=== PATIENT | female | born 1970 | race Caucasian/White ===

== ENCOUNTER 2020-04-21 14:08 | Emergency (ER) | payer OTHER, SELFPAY ==
[2020-04-21 14:10] VITALS: BP 95/42; PULSE 90; RESP 19; TEMP 36.7; O2SAT 97; BMI 29.2
--- NOTE | 2020-04-21 14:29 | US_ITS ---
PROCEDURE: US TRANSVAGINAL CLINICAL INDICATION: vaginal bleeding Vaginal bleeding, history of ovarian cancer COMPARISON: No exams were available for comparison FINDINGS: There has been a prior hysterectomy oophorectomy. Vaginal stump has an unremarkable appearance. Small amount fluid is present in the pelvis. Irregular areas of decreased echogenicity is are noted in the pelvis. This is of unknown clinical significance. Suggest CT of the abdomen pelvis with IV and adequate oral contrast for further evaluation. IMPRESSION: Status post hysterectomy and oophorectomy. Heterogeneous areas of low level echoes noted within the pelvis of indeterminate etiology. Recommend further evaluation CT of the abdomen pelvis with IV and adequate oral contrast Dictated by: Rocael Fitzgerald MD 04/21/2020 15:41 Rocael Fitzgerald MD in [place] 04/21/2020 15:41
--- NOTE | 2020-04-21 14:29 | CT_ITS ---
PROCEDURE: CT ABDOMEN PELVIS W CON CLINICAL INDICATION: abd pain Abdominal pain with vaginal bleeding, history of ovarian cancer COMPARISON: US US TRANSVAGINAL from 04/21/2020 TECHNIQUE: IV Contrast: 75ML Isovue 370 Oral Contrast None Axial images obtained with sagittal and coronal reformats. All CT scans at the facility use one or more dose reduction, viz: automated exposure control, ma/kV adjustment per patient size (including targeted exams where dose is matched to indication, i.e. head), or iterative reconstruction technique. FINDINGS: LOWER THORAX: There is patchy ground-glass attenuation in both lung bases with some mild atelectatic changes in the left lower lobe and a subpleural nodular density in the left lung base laterally at 7 mm. ABDOMEN & PELVIS: Mild fatty liver noted. There is a sub cm hypodensity in the hepatic dome anteriorly image 16 nonspecific. There is vague decreased attenuation within the central aspect of the right hepatic lobe possibly due to more focal areas of fatty infiltration. Follow-up may confirm. There has been a prior cholecystectomy. There is borderline splenomegaly at 13 cm. There are few small upper abdominal and perigastric lymph nodes. The adrenal glands and pancreas has an unremarkable appearance. There is mild cortical scarring of the right kidney. A 6 mm nonobstructing stone is present in the upper pole of the left kidney. No ureteral calculi. There is a mild amount of retained colonic feces.. There is some minimal nodularity noted along the lateral aspect of the splenic flexure of the colon nonspecific. The appendix is not clearly delineated. There has been a prior hysterectomy. There is a small amount of gas within the vaginal cuff. There is an area of soft tissue attenuation in the central pelvic region which may be due to the unopacified bowel and unopacified urinary bladder adjacent to the vaginal cuff. However, there was question of some unusual echogenicity in this area on the ultrasound. Consider repeating exam with adequate oral contrast as mentioned in the ultrasound report. There is a circular area of increased density inferior to the umbilicus within the anterior abdominal wall felt represent postsurgical change. There is thickening of the lateral conal fascia on the left extending down into the pelvic region. There is also some thickening of the lateral conal fascia on the right extending into the pelvic region. Scattered small nodular densities are present in the lower pelvic region and could represent small lymph nodes versus mesenteric implants. There is minimal amount of fluid in the pelvis. There is mild wedging of T11 age indeterminate. IMPRESSION: 1. Patchy ground-glass attenuation in both lower lobes consistent with bilateral lower lobe pneumonia. COVID 19 pneumonia is a consideration. There are also some atelectatic changes in the left lung base and a 7 mm subpleural nodule in the left lower lobe for which is six-month follow-up is suggested. 2. Status post hysterectomy. There is some soft tissue density noted at the vaginal cuff region with thickening of the lateral conal fascia bilaterally extending into the pelvic region. The appendix is not clearly delineated. Suggest repeating exam with adequate oral contrast as mentioned in the ultrasound report. 3. Scattered small nodular densities in the lower pelvic region which may represent small lymph nodes or even mesenteric implants. This could also be better evaluated with repeat exam with oral contrast. Dictated by: Rocael Fitzgerald MD 04/21/2020 17:06 Rocael Fitzgerald MD in [facility] 04/21/2020 17:06
--- NOTE | 2020-04-21 14:30 | HMH.EDGENADL ---
ED Disposition Clinical Impression: Vaginal bleeding, Lung nodule UTI (urinary tract infection) Qualifiers: Urinary tract infection type: acute cystitis Hematuria presence: with hematuria Qualified Code(s): N30.01 - Acute cystitis with hematuria Disposition: Home, Self-Care Condition on Discharge: Good Instructions: DI for Vaginal Bleeding Additional Instructions: You were seen on an emergency basis. It is very important that you follow up with your primary care provider and/or specialist as we discussed within 2 days. All labs and imaging were obtained and interpreted here to rule out life threatening emergencies, but your final results should be reviewed by your primary doctor at your follow up appointment. Please return to the emergency department if any of your symptoms worsen, or if they do not improve as we discussed. Please keep your oncology follow-up appointment for next week Prescriptions: Cefdinir [Omnicef 300mg Capsule] 300 mg PO BID #20 cap Prescription Printed Referrals: PCP,No [Primary Care Provider] - - Critical Care Critical Care Time: No Attestation: On 04/21/20, the high probability of a clinically significant, sudden or life threatening deterioration of the following system(s) required my full and direct attention, intervention and personal management. The time I documented below is in addition to time spent performing reported procedures but includes the following listed in this critical care notation. Medical Decision Making - Medical Records Medical records reviewed: Yes: I reviewed the patient's medical records. - Rafael Inquiry Pt receiving controlled substance: No Vital Signs: 04/21/20 14:10 04/21/20 15:24 04/21/20 16:37 Temperature 98.1 F Temperature Source Oral Pulse Rate [Left Radial] 90 89 69 Respiratory Rate 19 18 Blood Pressure [Right Arm] 95/42 L 114/56 L 127/60 Blood Pressure Mean [Right Arm] 59 75 82 Blood Pressure Source [Right Arm] Automatic Cuff Automatic Cuff Automatic Cuff Blood Pressure Position [Right Arm] Sitting Sitting Sitting 02 Sat by Pulse Oximetry 97 96 99 Oxygen Delivery Method Room Air Room Air - Lab Data Lab results reviewed: Yes: I reviewed the patient's lab results. Lab Results 04/21/20 14:24: Urine Color Dk yellow, Urine Appearance Cloudy, Urine pH 7.0, Ur Specific [place] 1.020, Urine Protein Trace, Urine Glucose (UA) Negative, Urine Ketones Negative, Urine Blood 2+, Urine Nitrate Negative, Urine Bilirubin Negative, Urine Urobilinogen 1.0, Ur Leukocyte Esterase 2+ A, Urine WBC 10-20, Urine Bacteria 1+ 04/21/20 15:30: WBC 5.6, RBC 4.27, Hgb 12.1 L, Hct 39.0, MCV 91.4, MCH 28.3, MCHC 31.0 L, RDW 16.0, Plt Count 166, MPV 13.9 H, Neut % (Auto) 36.4 L, Lymph % (Auto) 37.1, [place] % (Auto) 17.0 H, Eos % (Auto) 6.3, Baso % (Auto) 3.2 H, Neut # (Auto) 2.0, Lymph # (Auto) 2.1, [place] # (Auto) 1.0, Eos # (Auto) 0.4, Baso # (Auto) 0.2 04/21/20 15:30: PT 11.0, INR 0.99, APTT 23.3 L 04/21/20 15:30: Sodium 138, Potassium 3.7, Chloride 103, Carbon Dioxide 29, Anion Gap 9.7, BUN 10, Creatinine 0.50 L, Estimated Creat Clear 158, Estimated GFR 132, Est GFR ( Amer) 159, Glucose 137 H, Calcium 9.2, Total Bilirubin 1.1, AST 39 H, ALT 30, Alkaline Phosphatase 165 H, Total Protein 7.0, Albumin 3.9, Globulin 3.1, Albumin/Globulin Ratio 1.3 04/21/20 15:30: Blood Type A Positive, Antibody Screen Negative Result diagrams: 04/21/20 15:30 04/21/20 15:30 Orders (Tests/Meds): ED MEDICATIONS Generic Name Dose Route Start Last Admin Trade Name Freq PRN Reason Stop Dose Admin Ceftriaxone Sodium 1 gm/ 50 mls @ 100 mls/hr 04/21/20 16:30 04/21/20 16:30 Sodium Chloride IV 05/05/20 16:29 100 mls/hr Q24H LESA Administration Protocol Discontinued Medications Generic Name Dose Route Start Last Admin Trade Name Freq PRN Reason Stop Dose Admin Iopamidol 75 ml 04/21/20 16:26 04/21/20 16:27 Iopamidol-370 (76%);100ml Bottle IV 04/21/20 16:2
[2020-04-21 14:36] LABS: Microscopic, Urine URINE MICROSCOPIC (MICROSCOPIC)
[2020-04-21 14:48] LABS: Appearance,Urine CLOUDY (Clear); Blood, Urine 2+ (Negative); Color,Urine DK YELLOW (Yellow); Glucose,Urine (UA) Negative (Negative); Ketones,Urine Negative (Negative); Leukocyte Esterase,Urine 2+ (Negative); Nitrate,Urine Negative (Negative); Protein,Urine TRACE (Negative)
[2020-04-21 14:53] LABS: Bilirubin,Urine Negative (Negative)
[2020-04-21 15:06] LABS: Bacteria,Urine 1+ /lpf
[2020-04-21 15:24] VITALS: BP 114/56; PULSE 89; RESP 18; O2SAT 96
[2020-04-21 16:02] LABS: Basophils # 0.2 K/mm3 (0-0.2); Basophils % 3.2 % (0.1-2.0); Eosinophils # 0.4 K/mm3 (0.0-0.4); Eosinophils % 6.3 % (0.1-12.0); Hemoglobin 12.1 g/dL (12.2-16.2); Lymphocytes # 2.1 K/mm3 (0.7-4.5); Lymphocytes % 37.1 % (10-50); Mean Corpuscular Hemoglobin 28.3 pg (27.0-31.2); Mean Corpuscular Volume 91.4 fl (81-99); Mean Platelet Volume 13.9 fl (7.4-10.4); Neutrophils % 36.4 % (37.0-80.0); Platelet Count 166 K/mm3 (142-424); Red Blood Count 4.27 M/mm3 (4.20-5.40); White Blood Count 5.6 K/mm3 (4.8-10.8)
[2020-04-21 16:10] LABS: Chloride 103 mmol/L (98-107); Potassium 3.7 mmoL/L (3.5-5.1); Sodium 138 mmol/L (136-145)
[2020-04-21 16:12] LABS: Blood Urea Nitrogen 10 mg/dl (7-17); Creatinine Clearance Estimated 158 mL/min (50-200); Estimated Glomerular Filt Rate 132 ml/min (>60); GFR (African American) 159 ML/MIN (>60)
[2020-04-21 16:13] LABS: Alanine Aminotransferase 30 U/L (12-78); Albumin Level 3.9 g/dl (3.5-5.0); Albumin/Globulin Ratio 1.3 (1.1-1.8); Alkaline Phosphatase 165 U/L (38-126); Anion Gap 9.7 mEq/L (5-15); Aspartate Amino Transferase 39 U/L (14-36); Bilirubin,Total 1.1 mg/dl (0.2-1.3); Calcium 9.2 mg/dl (8.4-10.2); Carbon Dioxide 29 mmol/L (22.0-30.0); Globulin 3.1 g/dL (1.3-3.2); Glucose 137 mg/dl (74-100)
[2020-04-21 16:16] LABS: INR 0.99 (0.9-1.1)
[2020-04-21 16:17] LABS: Activated Partial Thrombo Time 23.3 seconds (23.6-34.0)
--- NOTE | 2020-04-21 16:29 | PC.NURSE ---
Pt returning from rad.
[2020-04-21 16:37] VITALS: BP 127/60; PULSE 69; O2SAT 99
[2020-04-21 17:39] VITALS: BP 92/64; PULSE 67; RESP 19; TEMP 36.7; O2SAT 95
== END 2020-04-21 17:42 | disposition home or self-care (01) ==
PROVIDERS: Emergency Provider Physician Assistant; PCP Family Medicine
DX: N30.01 Acute cystitis with hematuria (principal); N93.9 Abnormal uterine and vaginal bleeding, unspecified; R91.1 Solitary pulmonary nodule; Z85.43 Personal history of malignant neoplasm of ovary; E11.9 Type 2 diabetes mellitus without complications; I10 Essential (primary) hypertension
CPT/HCPCS: 74177; 76830; 80053; 81001; 85025; 85610; 85730; 86850; 87086; 87088; 87186; 96374; 99284; Q9967

== ENCOUNTER 2020-04-23 19:49 | Emergency (ER) | payer OTHER, SELFPAY ==
[2020-04-23 19:54] VITALS: BP 117/66; PULSE 89; RESP 19; TEMP 36.6; O2SAT 98; BMI 28.5
--- NOTE | 2020-04-23 20:08 | HMH.EDUTC ---
[facility] [place] Disposition Clinical Impression: Has run out of medications Disposition: Home, Self-Care Condition on Discharge: Good Instructions: Metoprolol, Metformin Prescriptions: Metoprolol Tartrate [Lopressor 25mg tablet] 25 mg PO BID 14 Days #28 tab Prescription Printed Metformin HCl [Metformin 1000mg Tablets] 1,000 mg PO BID 14 Days #28 tab Prescription Printed Referrals: Yang Estrada MD [Staff Physician] - (Follow up if any issues or complications) Time of Disposition: 20:25 Medical Decision Making - Rafael Inquiry Pt receiving controlled substance: No Rafael was queried for this patient: No Vital Signs: 04/23/20 19:54 04/23/20 20:51 Temperature 97.9 F 97.9 F Temperature Source Oral Pulse Rate 89 Pulse Rate [Left] 89 Respiratory Rate 19 19 Blood Pressure 117/66 Blood Pressure [Right Arm] 117/66 Blood Pressure Mean [Right Arm] 83 Blood Pressure Source [Right Arm] Automatic Cuff Blood Pressure Position [Right Arm] Sitting 02 Sat by Pulse Oximetry 98 Oxygen Delivery Method Room Air - Lab Data Lab results reviewed: Yes: I reviewed the patient's lab results. Lab Results 04/23/20 20:03: POC Glucose 343 H* Orders (Tests/Meds): ED MEDICATIONS Discontinued Medications Generic Name Dose Route Start Last Admin Trade Name Regla PRN Reason Stop Dose Admin Metformin HCl 1,000 mg 04/23/20 20:16 04/23/20 20:47 Metformin 500mg Tablet PO 04/23/20 20:17 1,000 mg ONCE ONE Administration Metoprolol Tartrate 25 mg 04/23/20 20:15 04/23/20 20:46 Metoprolol Tartrate 50mg Tablet PO 04/23/20 20:16 25 mg ONCE ONE Administration Medical Decision Narrative: Patients FSBS 343 in [facility] and recommended that patient be transferred to Ed patient declined states that she is elevated where she eat and just came in to get enought oral medication Metformin and Metoprolol for 2 weeks while she is in visiting family, Discussed with Ed Physican and agreed will give patient dose of Metformin 1000mg tonight in [facility] and give prescription for 2wks of medication (Metoprolol Tartrate 25mg BID and Metformin 1000mg BID to cover her while she is in visiting family and if she has any issues or problems or blood sugar issues she can follow up at the Primary Care with Dr Estrada Patient aware of risks and still requested oral Metoformin and she would follow up if need be or return to ED [facility] [place] HPI - General Stated complaint: sugar high, heart rate fast Time Seen by Provider: 04/23/20 20:08 Mode of Arrival: Ambulatory Source of Information: Patient Limitations: No Limitations Description of Symptoms (Recalled from Triage Doc. by RN): Medication refill HEENT Symptoms (Recalled from RN notes): No Resp Symptoms (Recalled from RN notes): No Skin Symptoms (Recalled from RN notes): No MS Symptoms (Recalled from RN notes): No Functional Status (Recalled from RN notes): wnl - History of Present Illness Provider Complaint: Patient state that she is in from [facility] visiting with Family and accidently grabbed the wrong medication states that she eat and went to take her medication and realized she didnt have it with her States that she takes Metformin 1000mg BID and Metoprolol Tartrate 25mg BID States that without the medication her blood sugar and heartrate will get elevated and she wanted to see if she could get a prescription for enough medication for 2 weeks to cover her while she is here until she goes home. States that without the medication her blood sugar will elevate and her heart will race. Denies any symptoms at this time - Related Data Previous Rx's Medication Instructions Recorded Cefdinir [Omnicef 300mg Capsule] 300 mg PO BID #20 cap 04/21/20 Metformin HCl [Metformin 1000mg 1,000 mg PO BID 14 Days #28 tab 04/23/20 Tablets] Metoprolol Tartrate [Lopressor 25 mg PO BID 14 Days #28 tab 04/23/20 25mg tablet] Allergies Allergy/AdvReac Type Severity Reaction Status Date / Time No Known
[2020-04-23 20:32] LABS: POC Glucose,Bedside 343 (70-110)
[2020-04-23 20:51] VITALS: BP 117/66; PULSE 89; RESP 19; TEMP 36.6; O2SAT 98
== END 2020-04-23 20:52 | disposition home or self-care (01) ==
PROVIDERS: Emergency Provider Nurse Practitioner; PCP Nurse Practitioner Family
DX: Z76.0 Encounter for issue of repeat prescription (principal); E11.65 Type 2 diabetes mellitus with hyperglycemia; R00.0 Tachycardia, unspecified
CPT/HCPCS: 82962; 99201

== ENCOUNTER 2020-04-30 10:22 | Emergency (ER) | payer OTHER, SELFPAY ==
[2020-04-30] VITALS (7 sets, daily range): BP systolic 94–141; BP diastolic 45–66; PULSE 66–99; RESP 16–22; TEMP 36.6–36.9; O2SAT 96–98; BMI 29.2
--- NOTE | 2020-04-30 10:31 | CT_ITS ---
PROCEDURE: CT ABDOMEN PELVIS W CON CLINICAL INDICATION: RUQ pain, s/p cholecystectomy Right upper quadrant pain. History of Covid19 COMPARISON: US US TRANSVAGINAL from 04/21/[address] ABDOMEN PELVIS W CON from 04/21/2020 TECHNIQUE: IV Contrast: 75ML Isovue 370 Oral Contrast None Axial images obtained with sagittal and coronal reformats. All CT scans at the facility use one or more dose reduction, viz: automated exposure control, ma/kV adjustment per patient size (including targeted exams where dose is matched to indication, i.e. head), or iterative reconstruction technique. FINDINGS: LOWER THORAX: Patchy subsegmental areas of infiltrate/atelectatic change once again noted in the lower lobes. Nodular opacity in the left lower lobe laterally once again noted and appears slightly more prominent which may be due to increasing atelectatic change. ABDOMEN & PELVIS: Subtle hypodensity is present in the hepatic dome at 5 mm unchanged. There is a small hiatal hernia. There has been a prior cholecystectomy. The spleen, adrenal glands, pancreas, has an unremarkable appearance. There is a nonobstructing 5 mm stone in the upper pole of the left kidney. Scattered small nodes are present in the epigastric and periportal region unchanged. There are some faint small nodular densities lateral to the ascending colon which are nonspecific and may be due to small lymph nodes. There is a mild amount of retained colonic feces. Patient was initially scan with both IV and oral contrast. The patient was asked to return as oral contrast had not yet made to the small-bowel and there was some soft tissue attenuation in the pelvic region and right lower quadrant which is not explained. There are post hysterectomy changes. There is thickening of the lateral conal fascia on both sides extending into the pelvic region. A normal appendix is not identified. The appendix may lie within the area of thickening of the lateral conal fascia. A distended appendix is not demonstrated. The nodularity in the right and left pelvic region does not appear to be related to unopacified bowel. No acute bony findings. There is mild chronic wedging of T11.. IMPRESSION: 1. Patchy subsegmental atelectasis/infiltrates in the lower lobes. Covid19 pneumonia is considered. 2. Nonobstructing 5 mm stone upper pole left kidney. 3. There is increased soft tissue density in the right lower quadrant which is contiguous with the cecum and the right adnexal region and right lateral conal fascia. Is somewhat but less apparent opacity is noted in the left lower quadrant in the lateral conal fascia region. These could represent post inflammatory changes. A normal appendix is not identified. Cannot exclude underlying inflammatory/infectious changes of the appendix by CT. Please correlate with clinical parameters Dictated by: Rocael Fitzgerald MD 04/30/2020 14:06 Rocael Fitzgerald MD in [place] 04/30/2020 14:06
--- NOTE | 2020-04-30 10:35 | HMH.EDGENADL ---
ED Disposition Clinical Impression: Lymphadenopathy, mesenteric Disposition: Home, Self-Care Condition on Discharge: Fair Instructions: DI for Acute Abdomen Additional Instructions: Follow-up with primary oncologist. Advised to return emergency department if pain continues to worsen or you start having fevers along with abdominal pain. Prescriptions: Oxycodone HCl/Acetaminophen [Percocet 10-325 mg Tablet] 1 tab PO Q6H PRN #10 tab PRN Reason: pain Prescription Printed Referrals: Karmen Dangelo APRN [Primary Care Provider] - - Critical Care Critical Care Time: No Attestation: On , the high probability of a clinically significant, sudden or life threatening deterioration of the following system(s) required my full and direct attention, intervention and personal management. The time I documented below is in addition to time spent performing reported procedures but includes the following listed in this critical care notation. Medical Decision Making - Medical Records Medical records reviewed: Yes: I reviewed the patient's medical records. - Rafael Inquiry Pt receiving controlled substance: No Vital Signs: 04/30/20 10:23 04/30/20 11:48 04/30/20 12:57 Temperature 98.5 F Temperature Source Oral Pulse Rate [Radial] 99 H 68 93 H Respiratory Rate 22 Blood Pressure [Right Arm] 106/56 L 94/45 L 106/56 L Blood Pressure Mean [Right Arm] 72 61 72 Blood Pressure Source [Right Arm] Blood Pressure Position [Right Arm] Sitting Sitting 02 Sat by Pulse Oximetry 97 98 Oxygen Delivery Method Room Air 04/30/20 13:17 04/30/20 14:42 04/30/20 15:08 Temperature Temperature Source Pulse Rate [Radial] 66 88 88 Respiratory Rate 18 Blood Pressure [Right Arm] 124/64 96/46 L 141/66 H Blood Pressure Mean [Right Arm] 84 62 91 Blood Pressure Source [Right Arm] Automatic Cuff Automatic Cuff Blood Pressure Position [Right Arm] Sitting Supine Supine 02 Sat by Pulse Oximetry 96 97 Oxygen Delivery Method - Lab Data Lab Results 04/30/20 09:50: WBC 7.2, RBC 4.49, Hgb 13.6, Hct 40.5, MCV 90.1, MCH 30.3, MCHC 33.6, RDW 16.1, Plt Count 232, MPV 8.9, Neut % (Auto) 53.0, Lymph % (Auto) 32.0, [place] % (Auto) 12.6 H, Eos % (Auto) 2.0, Baso % (Auto) 0.5, Neut # (Auto) 3.8, Lymph # (Auto) 2.3, [place] # (Auto) 0.9, Eos # (Auto) 0.1, Baso # (Auto) 0.0 04/30/20 09:50: Sodium 136, Potassium 3.9, Chloride 105, Carbon Dioxide 24, Anion Gap 10.9, BUN 11, Creatinine 0.60, Estimated Creat Clear 131, Estimated GFR 107, Est GFR ( Amer) 129, Glucose 166 H, Calcium 9.5, Total Bilirubin 1.5 H, AST 26, ALT 17, Alkaline Phosphatase 137 H, Total Protein 6.9, Albumin 3.8, Globulin 3.1, Albumin/Globulin Ratio 1.2, Lipase 54 04/30/20 09:50: Lactate 1.8 04/30/20 11:30: Urine Color Yellow, Urine Appearance Clear, Urine pH 5.0, Ur Specific [place] 1.020, Urine Protein Negative, Urine Glucose (UA) 1+, Urine Ketones Negative, Urine Blood Negative, Urine Nitrate Negative, Urine Bilirubin Negative, Urine Urobilinogen 0.2, Ur Leukocyte Esterase Negative, Urine RBC Occasional, Urine WBC 3-5, Ur Squamous Epith Cells 3-5 Result diagrams: 04/30/20 09:50 04/30/20 09:50 Orders (Tests/Meds): ED MEDICATIONS Generic Name Dose Route Start Last Admin Trade Name Freq PRN Reason Stop Dose Admin Sodium Chloride 10 ml 04/30/20 12:46 04/30/20 12:48 Sodium Chloride 0.9% 10ml Syr (Rad Only) IV 05/30/20 12:45 10 ml NEEDED PRN Administration Maintain IV Site Discontinued Medications Generic Name Dose Route Start Last Admin Trade Name Freq PRN Reason Stop Dose Admin Diatrizoate Meglum/Diatrizoate Sod 30 ml 04/30/20 10:31 04/30/20 10:57 Diatrizoate [place] 66% & Diatrizoate Na 10% 30ml Udc PO 04/30/20 10:32 30 ml ONCE ONE Administration Hydromorphone HCl 0.5 mg 04/30/20 11:32 04/30/20 11:33 Hydromorphone 2mg/Ml Syringe IV 04/30/20 11:33 0.5 mg ONCE ONE Administration Hydromorphone HCl 1 mg 04/30/20
[2020-04-30 11:03] LABS: Basophils % 0.5 % (0.1-2.0); Eosinophils # 0.1 K/mm3 (0.0-0.4); Hematocrit 40.5 % (37.0-47.0); Hemoglobin 13.6 g/dL (12.2-16.2); Lymphocytes # 2.3 K/mm3 (0.7-4.5); Mean Corpuscular HGB Conc 33.6 g/dL (31.8-35.4); Mean Corpuscular Hemoglobin 30.3 pg (27.0-31.2); Mean Corpuscular Volume 90.1 fl (81-99); Mean Platelet Volume 8.9 fl (7.4-10.4); Monocytes # 0.9 K/mm3 (0.1-1.0); Monocytes % 12.6 % (1.7-9.3); Neutrophils # 3.8 K/mm3 (1.8-7.8); Platelet Count 232 K/mm3 (142-424); Red Blood Count 4.49 M/mm3 (4.20-5.40); Red Cell Distribution Width 16.1 % (11.5-17.5); White Blood Count 7.2 K/mm3 (4.8-10.8)
--- NOTE | 2020-04-30 11:03 | PC.NURSE ---
pt finished drinking contrast
[2020-04-30 11:10] LABS: Chloride 105 mmol/L (98-107); Sodium 136 mmol/L (136-145)
[2020-04-30 11:11] LABS: Potassium 3.9 mmoL/L (3.5-5.1)
[2020-04-30 11:13] LABS: Alanine Aminotransferase 17 U/L (12-78); Albumin Level 3.8 g/dl (3.5-5.0); Albumin/Globulin Ratio 1.2 (1.1-1.8); Alkaline Phosphatase 137 U/L (38-126); Anion Gap 10.9 mEq/L (5-15); Aspartate Amino Transferase 26 U/L (14-36); Bilirubin,Total 1.5 mg/dl (0.2-1.3); Blood Urea Nitrogen 11 mg/dl (7-17); Calcium 9.5 mg/dl (8.4-10.2); Carbon Dioxide 24 mmol/L (22.0-30.0); Creatinine Clearance Estimated 131 mL/min (50-200); Estimated Glomerular Filt Rate 107 ml/min (>60); GFR (African American) 129 ML/MIN (>60); Globulin 3.1 g/dL (1.3-3.2); Glucose 166 mg/dl (74-100); Lipase 54 U/L (23-300); Total Protein,Serum 6.9 g/dl (6.3-8.2)
[2020-04-30 11:19] LABS: Lactic Acid 1.8 mmol/L (0.7-2.1)
[2020-04-30 11:41] LABS: Microscopic, Urine URINE MICROSCOPIC (MICROSCOPIC)
[2020-04-30 11:53] LABS: Appearance,Urine CLEAR (Clear); Bilirubin,Urine Negative (Negative); Blood, Urine Negative (Negative); Color,Urine YELLOW (Yellow); Glucose,Urine (UA) 1+ (Negative); Ketones,Urine Negative (Negative); Leukocyte Esterase,Urine Negative (Negative); Nitrate,Urine Negative (Negative); Protein,Urine Negative (Negative); Urobilinogen,Urine 0.2 EU/dl (0.2)
[2020-04-30 12:12] LABS: RBC,Urine Occasional #/hpf (0-3)
--- NOTE | 2020-04-30 13:41 | PC.NURSE ---
pt taken to ct
--- NOTE | 2020-04-30 14:00 | PC.NURSE ---
PT UPDATED ON PLAN OF CARE
--- NOTE | 2020-04-30 14:42 | PC.NURSE ---
Dr Eteinne talking to Dr borjas
--- NOTE | 2020-04-30 15:00 | PC.NURSE ---
PT UPDATED ON PLAN OF CARE
== END 2020-04-30 16:17 | disposition home or self-care (01) ==
PROVIDERS: Emergency Provider Emergency Medicine; PCP Nurse Practitioner Family
DX: R59.0 Localized enlarged lymph nodes (principal); E11.9 Type 2 diabetes mellitus without complications; Z79.84 Long term (current) use of oral hypoglycemic drugs
CPT/HCPCS: 74177; 80053; 81001; 83605; 83690; 85025; 96365; 96375; 96376; 99284; J1642; J2405; Q9967